=== PATIENT | male | born 1985 | race Two or more races ===

== ENCOUNTER 2024-12-01 19:28 | Emergency (ER) | payer MEDICAID, SELFPAY ==
--- NOTE | 2024-12-01 19:33 | EKG_ITS ---
[facility] Test Date: 2024-12-01 Pat Name: LI RYAN Department: Room: - Gender: Male [employer]: : 1985 Requested By: ED Temporary Provider Order Number: [id number] Reading MD: ED Temporary Provider Measurements Intervals [place] Rate: 83 P: 57 SD: 161 QRS: 76 QRSD: 93 T: 61 QT: 355 QTc: 419 Interpretive Statements SINUS RHYTHM No previous ECG available for comparison /store/S0/[id number]/ecg/[id number].pdf
--- NOTE | 2024-12-01 20:14 | PD.EDRME ---
Rapid Medical Screening Exam RME Arrival date/time: 12/01/24 19:28 39 yo male present to ED for c/o dizziness, headache, chest pain for 1 day I have greeted and performed a focused initial assessment of this patient. A comprehensive ED assessment and evaluation of the patient, analysis of all test results, and completion of the medical decision making process will be conducted by additional ED providers. Chief Complaint: Dizziness Time Seen by Provider: 12/01/24 20:09
--- NOTE | 2024-12-01 20:15 | XR_ITS ---
Examination: CT brain head without contrast. 2-D sagittal coronal reconstructions Date and time of exam:December 01, 2024 at 2033 hrs. Indications: Onset dizziness headaches beginning today CTDI: vol (mGy):49.7 DLP: (mGycm):1005 Technique: Multiple CT axial sections of the brain have been obtained, 5 mm slice thickness. Contrast has not been administered. 2-D sagittal, coronal reconstructions have been obtained Low dose protocols were performed. One or more of the following dose reduction techniques were used; automated exposure control, adjustment of the mA and/or KV according to patient size, use of iterative reconstruction technique. Findings: No significant ventricular enlargement. Intra-axial or extra-axial hemorrhage density is not seen. No mass effect or midline shift Basal cisterns are not remarkable. Fourth ventricle is midline. Cranial vault intact. Impression: Negative for acute hemorrhage, mass effect or midline shift Advise correlation follow-up accordingly
[2024-12-01 20:32] VITALS: BP 139/87; PULSE 87; RESP 20; TEMP 37; O2SAT 96
[2024-12-01 20:41] LABS: Basophils # (Auto) 0.1 Thou/mm3 (0.0-0.2); Basophils % (Auto) 1 % (0-2.5); Eosinophils # (Auto) 0.1 Thou/mm3 (0.0-0.5); Eosinophils % (Auto) 1 % (0-10); Hematocrit 38.6 % (41.0-53.0); Hemoglobin 13.7 g/dL (13.5-16.0); Immature Granulocytes % (Auto) 0 % (0-0); Immature Granulocytes Auto 0.01 Thou/mm3 (0.00-0.00); Lymphocytes # (Auto) 1.7 Thou/mm3 (1.0-4.8); Lymphocytes % (Auto) 35 % (10-50); Mean Corpuscular HGB Conc 35.5 g/dl (31.0-37.0); Mean Corpuscular Hemoglobin 30.2 pg (25.0-35.0); Mean Corpuscular Volume 85 fL (80-100); Monocytes # (Auto) 0.6 Thou/mm3 (0.0-0.8); Monocytes % (Auto) 12 % (0-12); Neutrophils # (Auto) 2.5 Thou/mm3 (1.8-7.7); Neutrophils % (Auto) 51 % (37-80); Nucleated Red Blood Cell % 0 /100 WBC (0); Platelet Count 293 Thou/mm3 (140-440); RDW Standard Deviation 38.1 fL (35.1-43.9); Red Blood Count 4.53 Miln/mm3 (4.50-5.90); White Blood Count 4.9 Thou/mm3 (3.8-10.6)
[2024-12-01 21:07] LABS: Alanine Aminotransferase 29 U/L (10-49); Albumin, Serum 4.6 gm/dL (3.5-5.0); Albumin/Globulin Ratio 1.4 (1.2-2.2); Alkaline Phosphatase 44 U/L (46-116); Anion Gap 10 (7-16); Aspartate Amino Transferase 25 U/L (0-34); BUN/Creatinine Ratio 13 Ratio (12-20); Bilirubin,Total 0.5 mg/dL (0.3-1.2); Blood Urea Nitrogen 12 mg/dL (9-23); Calcium 9.8 mg/dL (8.3-10.6); Calcium (Corrected) 9.8 mg/dL (8.5-10.1); Carbon Dioxide 24.9 mMol/L (20.0-31.0); Chloride 103 mMol/L (98-107); Creatinine (Component) 0.9 mg/dL (0.6-1.3); Globulin 3.3 gm/dL (2.3-3.5); Glucose 107 mg/dL (74-106); Osmolality,Calculated 275 (275-295); Potassium 3.4 mMol/L (3.4-5.1); Sodium 138 mMol/L (136-145); Total Protein 7.9 gm/dL (5.7-8.2); Troponin I < 0.020 ng/mL (0.0-0.045); eGFR > 60 See Note
--- NOTE | 2024-12-01 22:12 | PD.EDDIZZY ---
ED Dizzyness RME/HPI General Chief Complaint: Dizziness Stated Complaint: DIZZINESS, FIERRO, CHEST PRESSURE Time Seen by Provider: 12/01/24 20:09 Arrival date/time: 12/01/24 19:28 RME / HPI RME / HPI Narrative: 39-year-old male patient with no significant medical history, came in for evaluation regarding headache. Patient onset of symptoms earlier this morning as sudden onset of headache, dizziness, chest pressure, severity mild. Patient denies any cough denies any fever denies any shortness of breath. Patient also denies any head trauma or fall. Denies any upper or lower extremity weakness denies any slurring of speech. Denies any blurry vision. Denies any similar episode in the past dizziness is described as spinning around. No medication was taken prior to ER visit. Related Data Previous Rx's ?Medication ?Instructions ?Recorded meclizine 50 mg tablet 50 mg PO BID PRN dizziness #30 tabs 12/01/24 Allergies Allergy/AdvReac Type Severity Reaction Status Date / Time No Known Allergies Allergy Verified 12/01/24 19:29 Review of Systems Review of Systems Narrative Review of Systems: Review of system reviewed and within normal limits except mentioned in HPI ED Exam Narrative Physical exam: VITAL SIGNS: Reviewed. GENERAL APPEARANCE: Alert and interactive, follows commands, no acute distress, HEAD AND FACE: Non-traumatic. ENT: PERRL, pink conjunctivitis, eyelid no trauma, Mucous membrane moist. No nystagmus noted bilateral NECK: Supple, nontender, no nuchal rigidity. CHEST: No tenderness, no crepitus, no paradoxical movement, no retractions. LUNGS: Clear, well ventilated, symmetric, no rales, no wheezing, no ronchi, no stridor, good breath sounds bilaterally. HEART: Regular rate, regular rhythm, no murmur, no gallops. ABDOMEN: Soft, positive bowel sounds, nondistended, no guarding, nontender, no rebound, no masses, RECTAL: Deferred. GENITAL: Deferred. NEUROLOGICAL: Gross motor function intact sensory function intact, Appropriate for age. MUSCULOSKELETAL: low back nontender, full range of motion. EXTREMITIES: Nontender, full range of motion. SKIN: Color pink, dry, no rash, no lacerations, no abrasions, no contusions. LYMPHATICS: Deferred. Course Quality Measures none Orders Category Date Time Status Bedside COVID-19 Antigen Test NOW Care 12/01/24 20:15 Completed Bedside Influenza A&B Antigen Test NOW Care 12/01/24 20:15 Completed EKG (ED ONLY) *Do not use* NOW Care 12/01/24 19:[address] head/brain wo con Stat Exams 12/01/24 20:15 Completed EKG (ED Only) Stat Exams 12/01/24 19:33 Draft CBC Stat Lab 12/01/24 20:22 Completed CMP [Comprehensive Metabolic Panel] Stat Lab 12/01/24 20:22 Completed INR [Prothrombin Time with INR] Stat Lab 12/01/24 20:22 Received Troponin I Stat Lab 12/01/24 20:22 Completed Meclizine HCl [Antivert] Med 12/01/24 22:12 Once 50 mg PO X1 ONE Vital Signs Vital signs: Vital Signs Temperature 98.6 F 12/01/24 20:32 Pulse Rate 87 12/01/24 20:32 Respiratory Rate 20 12/01/24 20:32 Blood Pressure 139/87 H 12/01/24 20:32 Pulse Oximetry (%) 96 12/01/24 20:32 Oxygen Delivery Method Room Air 12/01/24 20:32 Dizziness MDM Narrative MDM Narrative:: 39-year-old male patient with no significant medical history, came in for evaluation regarding headache. Patient onset of symptoms earlier this morning as sudden onset of headache, dizziness, chest pressure, severity mild. Patient denies any cough denies any fever denies any shortness of breath. Patient also denies any head trauma or fall. Denies any upper or lower extremity weakness denies any slurring of speech. Denies any blurry vision. Denies any similar episode in the past dizziness is described as spinning around. No medication was taken prior to ER visit. Patient's laboratory workup today all came back normal troponin is normal CT scan of the head also came back unremarkable. EKG also came back with no ST segment elevation depression noted. Patient received meclizine with significant progress symptoms patient was noted to be ambulatory without holding to his . Patient appears nontoxic and hemodynamically stable. Patient discharged home and instructed to follow-up with primary care provider in 24 to 48 hours. Instructed to return to the emergency department immediately if worsening of symptoms Patient data External records reviewed:: None Clinical information provided by:: patient and family Social determinants that could affect healthcare access:: none Patient has the following chronic illnesses:: None How is presenting disease/condition affected by chronic disease/condition?: no chronic disease Evaluation data The following diagnostics were reviewed and interpreted by me:: lab results, radiology exam(s) and EKG tracing(s) Lab and/or radiology exams considered but not ordered:: None Interpretation Summary: See above in MDM Medications / Prescriptions Medications or Prescriptions considered but not ordered:: None meclizine Medication administrations:: Medication Administration History Discontinued Medications Meclizine HCl (Meclizine Hcl 25 Mg Tablet) 50 mg PO X1 ONE Stop: 12/01/24 22:13 Meclizine Consultations Consultation(s) initiated? (list below): No Diagnosis Dizziness Differential Diagnosis: adverse reaction to drug, benign paroxysmal positional vertigo and other (Dizziness, vertigo) Most likely diagnosis given after review of the tests above:: Dizziness, vertigo Admission Indicated Admission indicated?: not indicated Explain why admission is indicated or not indicated:: Stable Admission Request Was there a request for admission?: No Disposition Plan Disposition Plan: Discharge Discharge Attestation Discharge Attestation: The patient and all family members were given an opportunity to ask questions and understood the discharge instructions. Discharge instructions specifically effects, indications for sooner follow up or return to the emergency department, and the expected course of current diagnosis. Patient condition: Stable Discharge Plan Plan Patient Disposition: HOME (Self Care) Disposition Comment: Stable Prescriptions/Referrals Prescriptions/Med Rec: New meclizine 50 mg tablet 50 mg PO BID PRN (Reason: dizziness) Qty: 30 0RF Referrals: Bk Mckeon MD [Primary Care Provider] - In 1 week Problem List Clinical Impression: Dizziness, Vertigo Patient/Caregiver Discharge Instructions Discharge Activity: activity as tolerated Education Materials: Vertigo Medicine Tx Additional Instructions: Thank you for the opportunity for serving you today. You are stable for discharged . You are advised to: Follow-up with your PCP in 1 to 2 days Return to ED for worsening of symptoms Increase oral fluids Take medication as prescribed Print Language: Greenlandic Stand Alone Forms: Yanira Award Info., Patient Portal Info Letter
[2024-12-01] MEDS: MECLIZINE HCL 25 MG TABLET 50 MG PO (22:19)
[2024-12-01 22:40] LABS: INR 0.9 (0.9-1.3); Prothrombin Time 10.3 Seconds (9.0-12.2)
== END 2024-12-01 22:23 | disposition home or self-care (01) ==
PROVIDERS: Physician Assistant; Emergency Provider Emergency Medicine; PCP Family Medicine
DX: R42 Dizziness and giddiness (principal)
CPT/HCPCS: 36415; 70450; 80053; 84484; 85025; 85610; 87400; 87811; 93005; 99284; A9270